=== PATIENT | male | born 1980 | race Caucasian/White ===

== ENCOUNTER 2017-11-27 16:56 | Emergency (ER) | payer OTHER ==
[2017-11-27 19:19] VITALS: BP 144/79
--- NOTE | 2017-11-27 19:34 | UC ---
Skin Complaint HPI - HPI Summary HPI Summary: On November 15 patient cut himself with a pocket knife. He has a irregularly- shaped 10 cm laceration to his right forearm. Patient was seen at the [facility] and was sutured was not started on any antibiotics seen mental health and then discharged. 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 Patient did not seek any follow-up - History of Current Complaint Chief Complaint: [facility]kin Time Seen by Provider: 11/27/17 19:04 Stated Complaint: STITCH REMOVAL Hx Obtained From: Patient Onset/Duration: Sudden Onset, Lasting Days - happened 12 days ago, Still Present Timing: Constant Pain Intensity: 0 Location: Discrete Aggravating Factor(s): Nothing Alleviating Factor(s): Nothing Associated Signs & Symptoms: Positive: Drainage - Allergy/Home Medications Allergies/Adverse Reactions: Allergies Allergy/AdvReac Type Severity Reaction Status Date / Time Penicillins Allergy Severe Anaphylatic Verified 11/27/17 19:04 Shock acetaminophen Allergy Unknown GI Upset Verified 11/27/17 19:04 ibuprofen Allergy Unknown GI Upset Verified 11/27/17 19:04 metoclopramide [From Reglan] Allergy Unknown Anxiety Verified 11/27/17 19:04 ABSORBABLE SUTURES Allergy Unknown SKIN Uncoded 11/27/17 19:07 IRRITATON Home Medications: Home Medications Citalopram TAB* [Celexa TAB*] 20 mg PO DAILY 11/27/17 [History Confirmed ] Depression Med ?Name 1 tab PO DAILY 11/27/17 [History] Review of Systems Constitutional: Negative Skin: Negative, Other - Poorly approximated wound, right forearm. Scabbing purulent drainage erythema noted. Sutures also noted to be poorly approximating the wound Eyes: Negative ENT: Negative Respiratory: Negative Cardiovascular: Negative Gastrointestinal: Negative Genitourinary: Negative Motor: Negative Neurovascular: Negative Musculoskeletal: Negative Neurological: Negative Psychological: Negative Is Patient Immunocompromised?: No All Other Systems Reviewed And Are Negative: Yes PMH/Surg Hx/FS Hx/Imm Hx Previously Healthy: No Psychological History: Depression - Surgical History Surgical History: Yes Surgery Procedure, Year, and Place: right ankle surgery. SKIN GRAFTS - Family History Known Family History: Positive: Cardiac Disease, Hypertension, Diabetes - mother , father - Social History Occupation: Employed Full-time - vehicle dismantler Lives: With Family Alcohol Use: Occasionally Alcohol Amount: ONE OR TWICE A WEEK Substance Use Type: None Smoking Status (MU): Heavy Every Day Tobacco Smoker Type: Cigarettes Amount Used/How Often: 1 1/2 pack per day Length of Time of Smoking/Using Tobacco: 17 Have You Smoked in the Last Year: Yes Household Exposure Type: Cigarettes - Immunization History Most Recent Tetanus Shot: 11/15/17 Physical Exam Triage Information Reviewed: Yes Appearance: No Pain Distress, Well-Nourished, Ill-Appearing - appears older than stated age Vital Signs: Initial Vital Signs Temp 98.8 F 11/27/17 19:09 Pulse 102 11/27/17 19:09 Resp 18 11/27/17 19:09 BP 144/79 11/27/17 19:09 Pulse Ox 99 11/27/17 19:09 Vital Signs Reviewed: Yes Eye Exam: Normal Eyes: Positive: Conjunctiva Clear ENT Exam: Normal ENT: Positive: Normal ENT inspection, Hearing grossly normal. Negative: Trismus , Muffled voice, Hoarse voice Dental Exam: Normal Neck exam: Normal Neck: Positive: Supple, Nontender, No Lymphadenopathy Respiratory Exam: Normal Respiratory: Positive: Chest non-tender, Lungs clear, Normal breath sounds, No respiratory distress, No accessory muscle use Cardiovascular Exam: Normal Cardiovascular: Positive: RRR, No Murmur, Pulses Normal, Brisk Capillary Refill Musculoskeletal Exam: Normal Musculoskeletal: Positive: Strength Intact, ROM Intact, No Edema Neurological Exam: Normal Neurological: Positive: Alert, Muscle Tone Normal Psychological Exam: Normal Skin Exam: Other Skin: Positive: Other - poorly appromimated wound right forarm with surrounding erythema, purulent drainage absorable suture comming out of skin--wound seperated about 4 mm when sutures removed-- Course/Dx - Course Course Of Treatment: wound culture, clindamycin, steri strips telfa and ericka wrap ---off work recheck in 2-3 days with pcp or at urgent care - Diagnoses Provider Diagnoses: right upper extremity wound infection Discharge - Sign-Out/Discharge Documenting (check all that apply): Discharge/Admit/Transfer - Discharge Plan Condition: Stable Disposition: HOME Prescriptions: Clindamycin Cap(NF) [Clindamycin Cap 300 mg Cap(NF)] 300 mg PO Q6H #40 cap Patient Education Materials: Wound Infection (ED), Hypertension (ED), Warm Compress or Soak (ED) Forms: *Work Release Referrals: Antonio Carlos MD [Primary Care Provider] - 3 Days - Billing Disposition and Condition Condition: STABLE Disposition: Home
== END 2017-11-27 19:49 | disposition home or self-care (01) ==
LOC: UCCORT 16:56
DX: S51.811D Laceration without foreign body of right forearm, subsequent encounter (principal); L08.9 Local infection of the skin and subcutaneous tissue, unspecified; B95.61 Methicillin susceptible Staphylococcus aureus infection as the cause of diseases classified elsewhere; Z88.6 Allergy status to analgesic agent; Z88.0 Allergy status to penicillin; Z88.8 Allergy status to other drugs, medicaments and biological substances; Z91.048 Other nonmedicinal substance allergy status; F32.9 Major depressive disorder, single episode, unspecified; F17.210 Nicotine dependence, cigarettes, uncomplicated
CPT/HCPCS: 87070; 87077; 87186; 87205; 87640; 87641; 99212; G0463